=== PATIENT | female | born 1985 | race Caucasian/White ===

== ENCOUNTER 2017-09-15 18:30 | Emergency (ER) | payer MEDICAID, OTHER ==
[2017-09-15 20:51] LABS: BASO % 0.4 % (0.0-1.0); EOS # 0.1 10^3/uL (0.0-0.50); EOS % 0.9 % (0.0-3.0); HEMATOCRIT 42.8 % (36.0-47.0); IMMATURE GRANULOCYTE % 0.2 % (0-0); LYMPH # 3.7 10^3/uL (1.5-4.5); LYMPH % 37.7 % (24.0-44.0); MEAN CORPUSCULAR HEMOGLOBIN 28.8 pg (27.0-33.0); MEAN CORPUSCULAR HGB CONC 32.7 g/dl (32.0-36.5); MEAN CORPUSCULAR VOLUME 88.1 fl (80.0-96.0); MONO # 0.7 10^3/uL (0.0-0.8); MONO % 6.8 % (0.0-5.0); NEUTROPHILS # 5.3 10^3/uL (1.8-7.7); PLATELET COUNT, AUTOMATED 317 10^3/uL (150-450); RED BLOOD COUNT 4.86 10^6/uL (4.00-5.40); WHITE BLOOD COUNT 9.8 10^3/uL (4.0-10.0)
[2017-09-15 20:54] LABS: CONTROL LINE HCG INT CTR LINE PRESENT; HCG, SERUM QUALITATIVE NEGATIVE (NEGATIVE)
[2017-09-15 21:00] LABS: KETONE, URINE AUTO RFX TRACE mg/dL (NEGATIVE); LEUKOCYTE ESTERASE UR AUTO RFX NEGATIVE (NEGATIVE); MUCUS, URINE RFX SMALL (NEGATIVE); NITRITE, URINE AUTO RFX NEGATIVE (NEGATIVE); RBC, URINE AUTO RFX 4 /HPF (0-3); SPECIFIC GRAVITY UR AUTO RFX 1.026 (1.002-1.035); SQUAM EPITHELIAL CELL UR AURFX 4 /HPF (0-6); WBC, URINE AUTO RFX 2 /HPF (0-3)
[2017-09-15 21:02] LABS: ALBUMIN 4.4 GM/DL (3.2-5.2); ALBUMIN/GLOBULIN RATIO 1.38 (1.00-1.93); ALKALINE PHOSPHATASE 83 U/L (45-117); ALT/SGPT 17 U/L (12-78); ANION GAP 8 MEQ/L (8-16); AST/SGOT 17 U/L (7-37); BILIRUBIN,DIRECT 0.1 MG/DL (0.0-0.2); BILIRUBIN,TOTAL 0.4 MG/DL (0.2-1.0); BLOOD UREA NITROGEN 11 MG/DL (7-18); CALCIUM LEVEL 9.3 MG/DL (8.5-10.1); CARBON DIOXIDE LEVEL 30 MEQ/L (21-32); CHLORIDE LEVEL 105 MEQ/L (98-107); CREATININE FOR GFR 0.68 MG/DL (0.55-1.02); GLOMERULAR FILTRATION RATE > 60.0 (>60); GLUCOSE, FASTING 90 MG/DL (70-105); LIPASE 134 U/L (73-393); POTASSIUM SERUM 4.1 MEQ/L (3.5-5.1); SODIUM LEVEL 143 MEQ/L (136-145); TOTAL PROTEIN 7.6 GM/DL (6.4-8.2)
[2017-09-15] MEDS: KETOROLAC 30 MG/ML VIAL (J1885) IV ×2 (21:04)
[2017-09-15] MEDS: ONDANSETRON 4 MG ORAL DISINTEGRATING TAB (S0181) PO ×2 (21:05)
[2017-09-15] MEDS: NS 1,000 ML IV ×2 (21:05)
[2017-09-15] MEDS: MORPHINE 4 MG/ML 1ML SYRINGE IV ×2 (21:05)
[2017-09-15] MEDS: NORCO 5/325MG TABLET (BULK FOR ED) PO ×2 (23:18)
== END 2017-09-15 23:41 | disposition home or self-care (01) ==
LOC: M ED 18:30
DX: R10.9 Unspecified abdominal pain (principal); F17.200 Nicotine dependence, unspecified, uncomplicated
CPT/HCPCS: J1885

== ENCOUNTER 2017-09-22 19:09 | Emergency (ER) | payer MEDICAID | END 2017-09-22 20:05 | disposition left against medical advice (07) | LOC: M ED 19:09 | DX: Z53.21 Procedure and treatment not carried out due to patient leaving prior to being seen by health care provider (principal) | CPT/HCPCS: 99281 ==

== ENCOUNTER 2017-10-09 15:50 | Emergency (ER) | payer OTHER ==
[2017-10-09] MEDS: PERCOCET 5MG/325MG TAB PO (19:05)
[2017-10-09] MEDS: KETOROLAC 30 MG/ML VIAL (J1885) IV (19:11)
[2017-10-09] MEDS: ONDANSETRON 4MG/2ML VIAL (J2405) IV (19:11)
[2017-10-09 19:29] LABS: BASO % 0.3 % (0.0-1.0); EOS # 0.1 10^3/uL (0.0-0.50); EOS % 0.8 % (0.0-3.0); HEMATOCRIT 39.2 % (36.0-47.0); HEMOGLOBIN 12.7 g/dl (12.0-16.0); IMMATURE GRANULOCYTE # 0.1 10^3/uL (0-0); IMMATURE GRANULOCYTE % 0.5 % (0-0); LYMPH # 4.5 10^3/uL (1.5-4.5); LYMPH % 40.7 % (24.0-44.0); MEAN CORPUSCULAR HEMOGLOBIN 29.3 pg (27.0-33.0); MEAN CORPUSCULAR HGB CONC 32.4 g/dl (32.0-36.5); MEAN CORPUSCULAR VOLUME 90.3 fl (80.0-96.0); MONO # 0.6 10^3/uL (0.0-0.8); MONO % 5.5 % (0.0-5.0); NEUTROPHILS # 5.7 10^3/uL (1.8-7.7); NEUTROPHILS % 52.2 % (36.0-66.0); PLATELET COUNT, AUTOMATED 253 10^3/uL (150-450); RED BLOOD COUNT 4.34 10^6/uL (4.00-5.40); RED CELL DISTRIBUTION WIDTH 13.6 % (11.5-14.5)
[2017-10-09 19:46] LABS: APPEARANCE, URINE HAZY (CLEAR); BACTERIA, URINE AUTO 1+ (NEGATIVE); BILIRUBIN, URINE AUTO NEGATIVE (NEGATIVE); BLOOD, URINE BLOOD 3+ (NEGATIVE); COLOR, URINE YELLOW (YELLOW); GLUCOSE, URINE (UA) AUTO NEGATIVE (NEGATIVE); KETONE, URINE AUTO NEGATIVE (NEGATIVE); LEUKOCYTE ESTERASE, URINE AUTO NEGATIVE (NEGATIVE); MUCUS, URINE SMALL (NEGATIVE); NITRITE, URINE AUTO NEGATIVE (NEGATIVE); PROTEIN, URINE AUTO NEGATIVE (NEGATIVE); RBC, URINE AUTO TNTC /HPF (0-3); SQUAMOUS EPITHELIAL CELL UR AU 1 /HPF (0-6); UROBILINOGEN, URINE AUTO 0.2 mg/dL (0.0-2.0); WBC, URINE AUTO 3 /HPF (0-3)
[2017-10-09 20:02] LABS: ALBUMIN 3.8 GM/DL (3.2-5.2); ALBUMIN/GLOBULIN RATIO 1.12 (1.00-1.93); ALKALINE PHOSPHATASE 95 U/L (45-117); ALT/SGPT 93 U/L (12-78); ANION GAP 7 MEQ/L (8-16); AST/SGOT 43 U/L (7-37); BILIRUBIN,DIRECT < 0.1 MG/DL (0.0-0.2); BILIRUBIN,TOTAL 0.3 MG/DL (0.2-1.0); BLOOD UREA NITROGEN 13 MG/DL (7-18); CALCIUM LEVEL 9.1 MG/DL (8.5-10.1); CARBON DIOXIDE LEVEL 30 MEQ/L (21-32); CHLORIDE LEVEL 105 MEQ/L (98-107); GLOMERULAR FILTRATION RATE > 60.0 (>60); GLUCOSE, FASTING 101 MG/DL (70-100); POTASSIUM SERUM 4.8 MEQ/L (3.5-5.1); SODIUM LEVEL 142 MEQ/L (136-145); TOTAL PROTEIN 7.2 GM/DL (6.4-8.2)
[2017-10-09] MEDS: NORCO 5/325MG TABLET (BULK FOR ED) PO (21:28)
== END 2017-10-09 21:31 | disposition home or self-care (01) ==
LOC: M ED 15:50
DX: R10.9 Unspecified abdominal pain (principal); F17.210 Nicotine dependence, cigarettes, uncomplicated; Z88.0 Allergy status to penicillin; Z88.5 Allergy status to narcotic agent; Z88.8 Allergy status to other drugs, medicaments and biological substances; Z88.2 Allergy status to sulfonamides; Z87.448 Personal history of other diseases of urinary system; Z87.42 Personal history of other diseases of the female genital tract; Z98.890 Other specified postprocedural states
CPT/HCPCS: J2405

== ENCOUNTER 2018-01-19 22:41 | Emergency (ER) | payer MEDICAID, SELFPAY, OTHER ==
[2018-01-19 23:39] LABS: KETONE, URINE AUTO RFX NEGATIVE (NEGATIVE); NITRITE, URINE AUTO RFX NEGATIVE (NEGATIVE); RBC, URINE AUTO RFX TNTC /HPF (0-3); SPECIFIC GRAVITY UR AUTO RFX 1.014 (1.002-1.035); SQUAM EPITHELIAL CELL UR AURFX 3 /HPF (0-6); WBC, URINE AUTO RFX 2 /HPF (0-3)
[2018-01-19 23:40] LABS: LEUKOCYTE ESTERASE UR AUTO RFX TRACE (NEGATIVE)
[2018-01-20 00:16] LABS: BASO % 0.3 % (0.0-1.0); EOS # 0.2 10^3/uL (0.0-0.50); EOS % 1.6 % (0.0-3.0); HEMATOCRIT 42.8 % (36.0-47.0); HEMOGLOBIN 14.1 g/dl (12.0-15.5); IMMATURE GRANULOCYTE % 0.3 % (0-3.0); LYMPH # 3.4 10^3/uL (1.5-4.5); LYMPH % 31.1 % (24.0-44.0); MEAN CORPUSCULAR HEMOGLOBIN 29.5 pg (27.0-33.0); MEAN CORPUSCULAR HGB CONC 32.9 g/dl (32.0-36.5); MEAN CORPUSCULAR VOLUME 89.5 fl (80.0-96.0); MONO # 0.6 10^3/uL (0.0-0.8); MONO % 5.1 % (0.0-5.0); NEUTROPHILS # 6.8 10^3/uL (1.8-7.7); NEUTROPHILS % 61.6 % (36.0-66.0); PLATELET COUNT, AUTOMATED 279 10^3/uL (150-450); RED BLOOD COUNT 4.78 10^6/uL (4.00-5.40); RED CELL DISTRIBUTION WIDTH 12.5 % (11.5-14.5)
[2018-01-20] MEDS: MORPHINE 4 MG/ML 1ML VIAL/SYRINGE (J2270) IV ×4 (00:18→01:27)
[2018-01-20] MEDS: NS 1,000 ML IV ×2 (00:18)
[2018-01-20] MEDS: ONDANSETRON 4MG/2ML VIAL (J2405) IV ×2 (00:18)
[2018-01-20 00:59] LABS: ALBUMIN 4.3 GM/DL (3.2-5.2); ALBUMIN/GLOBULIN RATIO 1.08 (1.00-1.93); ALKALINE PHOSPHATASE 87 U/L (45-117); ALT/SGPT 23 U/L (12-78); ANION GAP 4 MEQ/L (8-16); AST/SGOT 20 U/L (7-37); BILIRUBIN,DIRECT < 0.1 MG/DL (0.0-0.2); BILIRUBIN,TOTAL 0.2 MG/DL (0.2-1.0); BLOOD UREA NITROGEN 6 MG/DL (7-18); CALCIUM LEVEL 9.2 MG/DL (8.5-10.1); CARBON DIOXIDE LEVEL 29 MEQ/L (21-32); CHLORIDE LEVEL 109 MEQ/L (98-107); CREATININE FOR GFR 0.72 MG/DL (0.55-1.30); GLOMERULAR FILTRATION RATE > 60.0 (>60); GLUCOSE, FASTING 87 MG/DL (70-100); LIPASE 112 U/L (73-393); POTASSIUM SERUM 4.1 MEQ/L (3.5-5.1); SODIUM LEVEL 142 MEQ/L (136-145); TOTAL PROTEIN 8.3 GM/DL (6.4-8.2)
[2018-01-20] MEDS: NORCO 5/325MG TABLET (BULK FOR ED) PO ×2 (02:42)
== END 2018-01-20 02:46 | disposition home or self-care (01) ==
LOC: M ED 01-20 02:46
DX: R10.9 Unspecified abdominal pain (principal); N20.0 Calculus of kidney; F17.210 Nicotine dependence, cigarettes, uncomplicated; Z79.2 Long term (current) use of antibiotics; Z87.442 Personal history of urinary calculi; Z88.0 Allergy status to penicillin; Z88.5 Allergy status to narcotic agent; Z88.8 Allergy status to other drugs, medicaments and biological substances; Z88.2 Allergy status to sulfonamides
CPT/HCPCS: J2270

== ENCOUNTER 2021-12-29 23:53 | Inpatient (IN) | payer MEDICAID, OTHER ==
[~2021-12-29] VITALS: Ht 162.6 cm; Wt 81.3 kg
[~2021-12-29 23:53] MED LIST: ACET-683 PO; HYDR-3715 PO; KETO10TAB PO; ZOFR4TAB14 PO
[2021-12-30] MEDS ORDERED: RALTEGRAVIR 400 MG TAB (ISENTRESS) PO SCH
[2021-12-30] MEDS ORDERED: HYDR50TA70 PO (00:18)
[2021-12-30] MEDS ORDERED: TRAZ-189 PO (00:18)
[2021-12-30] MEDS ORDERED: LAMO25TA4 PO (00:18)
[2021-12-30] MEDS ORDERED: GABA-1171 PO (00:18)
[2021-12-30] MEDS ORDERED: ARIP10TA32 PO (00:18)
[2021-12-30] MEDS ORDERED: ALPR0.25 PO (00:18)
[2021-12-30] MEDS ORDERED: CHOL25TA8 PO (00:18)
[2021-12-30] MEDS ORDERED: NS 1,000 ML IV ONE (00:30)
[2021-12-30] MEDS ORDERED: ONDANSETRON 4MG/2ML VIAL IV ONE (00:30)
[2021-12-30 02:24] LABS: BASO % 0.4 % (0.0-1.0); EOS % 0.4 % (0.0-3.0); HEMATOCRIT 47.5 % (36.0-47.0); HEMOGLOBIN 15.3 g/dl (12.0-15.5); MEAN CORPUSCULAR HEMOGLOBIN 29.5 pg (27.0-33.0); MEAN CORPUSCULAR HGB CONC 32.2 g/dl (32.0-36.5); MEAN CORPUSCULAR VOLUME 91.7 fl (80.0-96.0); MONO # 0.6 10^3/uL (0.0-0.8); MONO % 5.9 % (2.0-8.0); NEUTROPHILS # 5.5 10^3/uL (1.5-8.5); NEUTROPHILS % 53.7 % (36.0-66.0); PLATELET COUNT, AUTOMATED 326 10^3/uL (150-450); RED BLOOD COUNT 5.18 10^6/uL (4.00-5.40); WHITE BLOOD COUNT 10.3 10^3/uL (4.0-10.0)
[2021-12-30 03:45] LABS: ACETAMINOPHEN LEVEL < 2.0 UG/ML (10.0-30.0); ALBUMIN 3.9 GM/DL (3.2-5.2); ALT/SGPT 136 U/L (12-78); BILIRUBIN,DIRECT < 0.1 MG/DL (0.0-0.2); BILIRUBIN,TOTAL 0.2 MG/DL (0.2-1.0); BLOOD UREA NITROGEN 7 MG/DL (7-18); CALCIUM LEVEL 8.9 MG/DL (8.5-10.1); CARBON DIOXIDE LEVEL 23 MEQ/L (21-32); CHLORIDE LEVEL 113 MEQ/L (98-107); CREATININE FOR GFR 0.45 MG/DL (0.55-1.30); ETHYL ALCOHOL (ETHANOL) 0.174 % (0.000-0.010); GLOMERULAR FILTRATION RATE > 60.0 (>60); GLUCOSE, FASTING 91 MG/DL (70-100); LIPASE 317 U/L (73-393); POTASSIUM SERUM 3.8 MEQ/L (3.5-5.1); SALICYLATE LEVEL 1.9 MG/DL (5.0-30.0); SODIUM LEVEL 145 MEQ/L (136-145); TOTAL PROTEIN 7.5 GM/DL (6.4-8.2)
[2021-12-30 04:56] LABS: RSV AMPLIFICATION NEGATIVE (NEGATIVE)
[2021-12-30 05:38] LABS: HCG, SERUM QUALITATIVE NEGATIVE (NEGATIVE)
[2021-12-30] MEDS ORDERED: RALT40TA PO (08:02)
[2021-12-30] MEDS ORDERED: DOXY-342 PO (08:02)
[2021-12-30] MEDS ORDERED: EMTR1TAB16 PO (08:02)
[2021-12-30] MEDS ORDERED: EXPOSURE KIT-ADULT 7 DAY SUPPLY PO ONE (08:15)
[2021-12-30] MEDS ORDERED: HEPATITIS B IMMUNE GLOBULIN 5ML INJ IM ONE (08:15)
[2021-12-30] MEDS ORDERED: GENTAMICIN 240 MG in D5W 50 ML IM ONE (08:15)
[2021-12-30] MEDS ORDERED: HEPATITIS B VACCINE 10 MCG/0.5 ML SYRINGE (FOR ALL OTHER PTS) IM ONE (08:15)
[2021-12-30] MEDS ORDERED: BOOSTRIX/ADACEL VACCINE (DIPHTH/PERTUSS/ACELL/TETANUS) 0.5ML SYR IM ONE (08:15)
[2021-12-30] MEDS ORDERED: ULIPRISTAL ACETATE 30 MG TAB (ELLA) PO ONE (08:15)
[2021-12-30] MEDS ORDERED: metroNIDAZOLE (FLAGYL) 500MG TABLET PO ONE (08:15)
[2021-12-30] MEDS ORDERED: DOXYCYCLINE HYCLATE 100MG TABLET PO ONE (08:15)
[2021-12-30] MEDS ORDERED: AZITHROMYCIN 250MG TABLET PO ONE (08:15)
[2021-12-30] MEDS ORDERED: GENTAMICIN SULF 80MG/2ML VIAL IM ONE (08:35)
[2021-12-30] MEDS ORDERED: TRUVADA 200MG/300MG TABLET PO ONE (08:40)
[2021-12-30] MEDS ORDERED: RALTEGRAVIR 400 MG TAB (ISENTRESS) PO ONE (08:40)
[2021-12-30] MEDS ORDERED: HEPATITIS B VACCINE 20MCG/ML 1ML SYRINGE (ADULT DOSE) IM ONE (09:55)
[2021-12-30 11:42] LABS: GLUCOSE, URINE (UA) MANUAL NEGATIVE (NEGATIVE)
[2021-12-30 11:43] LABS: BILIRUBIN, URINE MANUAL NEGATIVE (NEGATIVE); KETONE, URINE MANUAL 1+ mg/dL (NEGATIVE); UROBILINOGEN, URINE MANUAL NORMAL (NORMAL)
[2021-12-30 11:54] LABS: BACTERIA, URINE SMALL AMOUNT; HYALINE CAST, URINE NONE SEEN /lpf (0-1); RBC, URINE 0-1 /hpf (0-3); SQUAMOUS EPITHELIAL CELL URINE SMALL AMOUNT /hpf (SMALL AMT)
[2021-12-30 11:55] LABS: OTHER CRYSTALS, URINE AMM BIURATE /hpf
[2021-12-30 11:56] LABS: AMORPHOUS SEDIMENT, URINE MOD AMOUNT (NEGATIVE)
[2021-12-30 14:01] LABS: AMPHETAMINES LEVEL URINE NEGATIVE (NEGATIVE); BARBITURATES URINE NEGATIVE (NEGATIVE); BENZODIAZEPINES URINE NEGATIVE (NEGATIVE); CANNABINOIDS URINE POSITIVE (NEGATIVE); COCAINE METABOLITE URINE NEGATIVE (NEGATIVE); METHADONE URINE NEGATIVE (NEGATIVE); OPIATES URINE NEGATIVE (NEGATIVE); PHENCYCLIDINE URINE NEGATIVE (NEGATIVE)
[2021-12-30 14:45] LABS: GC DNA AMPLIFICATION NEGATIVE (NEGATIVE)
[2021-12-30] MEDS ORDERED: lamoTRIgine 25MG TAB PO SCH (15:55)
[2021-12-30] MEDS ORDERED: ARIPiprazole 10 MG TAB PO SCH (15:55)
[2021-12-30] MEDS: GABAPENTIN 100 MG CAP PO SCH ×3 (16:00→21:10)
[2021-12-30] MEDS ORDERED: NICO-265 PO (17:38)
[2021-12-30] MEDS ORDERED: HOME MED LIST COMPLETE! XX SCH (18:05)
[2021-12-30] MEDS ORDERED: traZODone 100 MG TAB PO ONE (21:30)
[2021-12-31 08:06] LABS: HEPATITIS B SURFACE ANTIBODY POSITIVE (POSITIVE)
[2021-12-31 08:17] LABS: HEPATITIS B SURFACE ANTIGEN NEGATIVE (NEGATIVE)
[2021-12-31] MEDS: GABAPENTIN 100 MG CAP PO SCH ×3 (08:19→20:14)
[2021-12-31 08:45] LABS: HIV 1&2 SCREEN CENTAUR NEGATIVE (NEGATIVE)
[2021-12-31 08:49] LABS: HEPATITIS C VIRUS ABY INDEX > 11.0 INDEX (<0.8)
[2021-12-31] MEDS: MULTIVITAMINS/MINERALS THERAP 1 TAB PO SCH (09:00)
[2021-12-31] MEDS: THIAMINE 100 MG TAB PO SCH ×2 (09:00→20:15)
[2021-12-31] MEDS: FOLIC ACID 1 MG TAB PO SCH (09:00)
[2021-12-31] MEDS ORDERED: TRUVADA 200MG/300MG TABLET PO SCH ×2 (09:00)
[2021-12-31] MEDS ORDERED: RALTEGRAVIR 400 MG TAB (ISENTRESS) PO SCH (09:00)
[2021-12-31] MEDS: VITAMIN D 1,000 INTERNATIONAL UNITS TABLET PO SCH (09:00)
[2021-12-31] MEDS: NICOTINE 21MG/24HR 1 EA TRANSDERMAL TD SCH (09:00)
[2021-12-31] MEDS ORDERED: traZODone 50 MG TAB PO PRN (12:25)
[2021-12-31] MEDS ORDERED: LORazepam 2 MG TAB PO PRN (12:25)
[2021-12-31] MEDS ORDERED: MAALOX 30 ML SUSP *UDC PO PRN (12:25)
[2021-12-31] MEDS ORDERED: OLANZapine 5 MG TAB PO PRN (12:25)
[2021-12-31] MEDS ORDERED: MOM 30ML SUSPENSION UDC PO PRN (12:25)
[2021-12-31 16:30] VITALS: BP 117/59
[2021-12-31] MEDS: IBUPROFEN 400MG TAB PO PRN (17:04)
[2021-12-31 17:47] VITALS: BP 114/79
[2021-12-31] MEDS: traZODone 100 MG TAB PO SCH (20:14)
[2021-12-31] MEDS: ARIPiprazole 10 MG TAB PO SCH (20:14)
[2021-12-31] MEDS: RALTEGRAVIR 400 MG TAB (ISENTRESS) PO SCH (20:15)
[2021-12-31] MEDS: lamoTRIgine 25MG TAB PO SCH (20:15)
[2021-12-31] MEDS: DOXYCYCLINE HYCLATE 100MG TABLET PO SCH (20:15)
[2021-12-31 20:32] VITALS: BP 123/66
[2021-12-31] MEDS: hydrOXYzine 50 MG TAB PO PRN (20:47)
[2021-12-31] MEDS: diphenhydrAMINE 25MG CAP PO PRN (20:47)
[2021-12-31] MEDS ORDERED: ARIPiprazole 10 MG TAB PO SCH (21:00)
[2021-12-31] MEDS ORDERED: lamoTRIgine 25MG TAB PO SCH (21:00)
[2021-12-31] MEDS ORDERED: EXPOSURE KIT-ADULT 7 DAY SUPPLY PO SCH ×2 (21:00)
[2021-12-31] MEDS ORDERED: DOXYCYCLINE HYCLATE 100MG TABLET PO SCH (21:00)
[2022-01-01 06:42] VITALS: BP 102/60
[2022-01-01 06:57] VITALS: BP 102/60
[2022-01-01] MEDS: FOLIC ACID 1 MG TAB PO SCH (08:38)
[2022-01-01] MEDS: GABAPENTIN 100 MG CAP PO SCH ×3 (08:38→20:24)
[2022-01-01] MEDS: NICOTINE 21MG/24HR 1 EA TRANSDERMAL TD SCH (08:38)
[2022-01-01] MEDS: TRUVADA 200MG/300MG TABLET PO SCH (08:38)
[2022-01-01] MEDS: VITAMIN D 1,000 INTERNATIONAL UNITS TABLET PO SCH (08:38)
[2022-01-01] MEDS: RALTEGRAVIR 400 MG TAB (ISENTRESS) PO SCH ×2 (08:38→20:24)
[2022-01-01] MEDS: DOXYCYCLINE HYCLATE 100MG TABLET PO SCH ×2 (08:38→20:25)
[2022-01-01] MEDS: THIAMINE 100 MG TAB PO SCH ×2 (08:38→20:24)
[2022-01-01] MEDS: MULTIVITAMINS/MINERALS THERAP 1 TAB PO SCH (08:38)
[2022-01-01] MEDS ORDERED: INFLUENZA QUADRIVALENT PF VACCINE 0.5ML SYRINGE IM ONE (09:00)
[2022-01-01] MEDS: hydrOXYzine 50 MG TAB PO PRN ×2 (09:09→20:23)
[2022-01-01] MEDS: IBUPROFEN 400MG TAB PO PRN (12:04)
[2022-01-01] MEDS: OXAZEPAM 15MG CAP PO SCH ×2 (14:27→22:06)
[2022-01-01 15:41] VITALS: BP 96/53
[2022-01-01 15:44] VITALS: BP 96/53
[2022-01-01] MEDS: diphenhydrAMINE 25MG CAP PO PRN (18:08)
[2022-01-01] MEDS: ARIPiprazole 10 MG TAB PO SCH (20:24)
[2022-01-01] MEDS: traZODone 100 MG TAB PO SCH (20:24)
[2022-01-01] MEDS: lamoTRIgine 25MG TAB PO SCH (20:25)
[2022-01-01 21:59] VITALS: BP 108/70
[2022-01-02] MEDS: OXAZEPAM 15MG CAP PO SCH ×3 (05:36→21:18)
[2022-01-02 06:50] VITALS: BP 99/70
[2022-01-02] MEDS: DOXYCYCLINE HYCLATE 100MG TABLET PO SCH (08:39)
[2022-01-02] MEDS: RALTEGRAVIR 400 MG TAB (ISENTRESS) PO SCH ×2 (08:39→19:59)
[2022-01-02] MEDS: FOLIC ACID 1 MG TAB PO SCH (08:39)
[2022-01-02] MEDS: TRUVADA 200MG/300MG TABLET PO SCH (08:39)
[2022-01-02] MEDS: GABAPENTIN 100 MG CAP PO SCH ×3 (08:39→20:00)
[2022-01-02] MEDS: VITAMIN D 1,000 INTERNATIONAL UNITS TABLET PO SCH (08:39)
[2022-01-02] MEDS: NICOTINE 21MG/24HR 1 EA TRANSDERMAL TD SCH (08:39)
[2022-01-02] MEDS ORDERED: diphenhydrAMINE 50MG CAP PO STA (10:02)
[2022-01-02] MEDS: hydrOXYzine 50 MG TAB PO PRN ×2 (13:19→20:01)
[2022-01-02] MEDS: IBUPROFEN 400MG TAB PO PRN (18:53)
[2022-01-02] MEDS: lamoTRIgine 25MG TAB PO SCH (19:59)
[2022-01-02] MEDS: traZODone 100 MG TAB PO SCH (20:00)
[2022-01-02] MEDS: QUEtiapine FUMARATE 50MG TAB PO SCH (20:00)
[2022-01-02] MEDS: ARIPiprazole 10 MG TAB PO SCH (20:01)
[2022-01-03] MEDS: OXAZEPAM 15MG CAP PO SCH ×3 (05:56→21:12)
[2022-01-03 06:28] VITALS: BP 124/70
[2022-01-03] MEDS: RALTEGRAVIR 400 MG TAB (ISENTRESS) PO SCH ×2 (08:20→20:27)
[2022-01-03] MEDS: TRUVADA 200MG/300MG TABLET PO SCH (08:20)
[2022-01-03] MEDS: GABAPENTIN 100 MG CAP PO SCH (08:22)
[2022-01-03] MEDS: FOLIC ACID 1 MG TAB PO SCH (08:22)
[2022-01-03] MEDS: VITAMIN D 1,000 INTERNATIONAL UNITS TABLET PO SCH (08:22)
[2022-01-03] MEDS: NICOTINE 21MG/24HR 1 EA TRANSDERMAL TD SCH (08:23)
[2022-01-03] MEDS: diphenhydrAMINE 25MG CAP PO PRN ×2 (11:07→20:26)
[2022-01-03] MEDS: hydrOXYzine 50 MG TAB PO PRN ×2 (11:07→20:26)
[2022-01-03] MEDS ORDERED: QUEtiapine FUMARATE 50MG TAB PO ONE (12:00)
[2022-01-03] MEDS: CEPACOL LOZENGE PO PRN ×2 (12:42→20:26)
[2022-01-03 15:04] VITALS: BP 107/58
[2022-01-03] MEDS: GABAPENTIN 300 MG CAP PO SCH ×2 (16:18→20:27)
[2022-01-03] MEDS: ARIPiprazole 10 MG TAB PO SCH (20:27)
[2022-01-03] MEDS: QUEtiapine FUMARATE 50MG TAB PO SCH (20:27)
[2022-01-03] MEDS: lamoTRIgine 25MG TAB PO SCH (20:27)
[2022-01-04] MEDS: OXAZEPAM 10MG CAP PO SCH ×3 (00:06→20:03)
[2022-01-04 06:03] VITALS: BP 113/81
[2022-01-04] MEDS: NICOTINE 21MG/24HR 1 EA TRANSDERMAL TD SCH (08:08)
[2022-01-04] MEDS: RALTEGRAVIR 400 MG TAB (ISENTRESS) PO SCH ×2 (08:08→20:02)
[2022-01-04] MEDS: VITAMIN D 1,000 INTERNATIONAL UNITS TABLET PO SCH (08:08)
[2022-01-04] MEDS: TRUVADA 200MG/300MG TABLET PO SCH (08:08)
[2022-01-04] MEDS: GABAPENTIN 300 MG CAP PO SCH ×3 (08:08→20:04)
[2022-01-04] MEDS: hydrOXYzine 50 MG TAB PO PRN ×2 (08:08→17:56)
[2022-01-04] MEDS: FOLIC ACID 1 MG TAB PO SCH (08:08)
[2022-01-04] MEDS ORDERED: BACITRACIN OINTMENT 30GM TUBE TOP PRN (10:05)
[2022-01-04] MEDS ORDERED: IBUPROFEN 800 MG TAB PO ONE (10:10)
[2022-01-04] MEDS: CEPACOL LOZENGE PO PRN ×2 (11:22→22:10)
[2022-01-04] MEDS: diphenhydrAMINE 25MG CAP PO PRN (12:15)
[2022-01-04 18:53] VITALS: BP 120/73
[2022-01-04] MEDS: lamoTRIgine 25MG TAB PO SCH (20:04)
[2022-01-04] MEDS: ARIPiprazole 10 MG TAB PO SCH (20:04)
[2022-01-04] MEDS: QUEtiapine FUMARATE 50MG TAB PO SCH (20:04)
[2022-01-05 06:27] VITALS: BP 90/51
[2022-01-05] MEDS: RALTEGRAVIR 400 MG TAB (ISENTRESS) PO SCH ×2 (08:27→20:05)
[2022-01-05] MEDS: NICOTINE 21MG/24HR 1 EA TRANSDERMAL TD SCH (08:27)
[2022-01-05] MEDS: GABAPENTIN 300 MG CAP PO SCH ×3 (08:27→20:09)
[2022-01-05] MEDS: FOLIC ACID 1 MG TAB PO SCH (08:27)
[2022-01-05] MEDS: OXAZEPAM 10MG CAP PO SCH ×2 (08:27→20:08)
[2022-01-05] MEDS: VITAMIN D 1,000 INTERNATIONAL UNITS TABLET PO SCH (08:27)
[2022-01-05] MEDS: TRUVADA 200MG/300MG TABLET PO SCH (08:27)
[2022-01-05] MEDS: diphenhydrAMINE 25MG CAP PO PRN (12:00)
[2022-01-05] MEDS: CEPACOL LOZENGE PO PRN (15:23)
[2022-01-05 18:38] VITALS: BP 125/72
[2022-01-05] MEDS: hydrOXYzine 50 MG TAB PO PRN (20:07)
[2022-01-05] MEDS: QUEtiapine FUMARATE 50MG TAB PO SCH (20:08)
[2022-01-05] MEDS: lamoTRIgine 25MG TAB PO SCH (20:09)
[2022-01-05] MEDS: ARIPiprazole 10 MG TAB PO SCH (20:09)
[2022-01-06 06:00] VITALS: BP 90/54
[2022-01-06 07:36] LABS: BASO # 0.1 10^3/uL (0.0-0.2); BASO % 0.5 % (0.0-1.0); EOS # 0.3 10^3/uL (0.0-0.5); EOS % 2.8 % (0.0-3.0); HEMATOCRIT 41.2 % (36.0-47.0); LYMPH # 5.3 10^3/uL (1.5-5.0); LYMPH % 53.9 % (24.0-44.0); MEAN CORPUSCULAR HEMOGLOBIN 29.1 pg (27.0-33.0); MEAN CORPUSCULAR HGB CONC 31.6 g/dl (32.0-36.5); MEAN CORPUSCULAR VOLUME 92.4 fl (80.0-96.0); MONO # 0.7 10^3/uL (0.0-0.8); MONO % 7.2 % (2.0-8.0); NEUTROPHILS # 3.4 10^3/uL (1.5-8.5); NEUTROPHILS % 35.3 % (36.0-66.0); PLATELET COUNT, AUTOMATED 339 10^3/uL (150-450); RED BLOOD COUNT 4.46 10^6/uL (4.00-5.40); WHITE BLOOD COUNT 9.7 10^3/uL (4.0-10.0)
[2022-01-06 07:54] LABS: ALBUMIN 3.5 GM/DL (3.2-5.2); ALT/SGPT 92 U/L (12-78); BILIRUBIN,TOTAL 0.2 MG/DL (0.2-1.0); BLOOD UREA NITROGEN 11 MG/DL (7-18); CALCIUM LEVEL 9.5 MG/DL (8.5-10.1); CARBON DIOXIDE LEVEL 27 MEQ/L (21-32); CHLORIDE LEVEL 109 MEQ/L (98-107); GLOMERULAR FILTRATION RATE > 60.0 (>60); GLUCOSE, FASTING 93 MG/DL (70-100); MAGNESIUM LEVEL 2.3 MG/DL (1.8-2.4); POTASSIUM SERUM 4.7 MEQ/L (3.5-5.1); SODIUM LEVEL 141 MEQ/L (136-145); TOTAL PROTEIN 6.9 GM/DL (6.4-8.2)
[2022-01-06 09:06] VITALS: BP 117/63
[2022-01-06] MEDS: GABAPENTIN 300 MG CAP PO SCH ×3 (09:09→20:20)
[2022-01-06] MEDS: TRUVADA 200MG/300MG TABLET PO SCH (09:09)
[2022-01-06] MEDS: VITAMIN D 1,000 INTERNATIONAL UNITS TABLET PO SCH (09:09)
[2022-01-06] MEDS: NICOTINE 21MG/24HR 1 EA TRANSDERMAL TD SCH (09:09)
[2022-01-06] MEDS: FOLIC ACID 1 MG TAB PO SCH (09:09)
[2022-01-06] MEDS: RALTEGRAVIR 400 MG TAB (ISENTRESS) PO SCH ×2 (09:09→20:20)
[2022-01-06] MEDS: OXAZEPAM 10MG CAP PO SCH (12:34)
[2022-01-06 18:31] VITALS: BP 132/70
[2022-01-06] MEDS: ARIPiprazole 10 MG TAB PO SCH (20:20)
[2022-01-06] MEDS: lamoTRIgine 25MG TAB PO SCH (20:20)
[2022-01-06] MEDS: QUEtiapine FUMARATE 50MG TAB PO SCH (20:20)
[2022-01-06] MEDS: diphenhydrAMINE 25MG CAP PO PRN (20:20)
[2022-01-07 06:34] VITALS: BP 137/70
[2022-01-07] MEDS: GABAPENTIN 300 MG CAP PO SCH ×3 (09:00→20:04)
[2022-01-07] MEDS: NICOTINE 21MG/24HR 1 EA TRANSDERMAL TD SCH (09:00)
[2022-01-07] MEDS: VITAMIN D 1,000 INTERNATIONAL UNITS TABLET PO SCH (09:00)
[2022-01-07] MEDS: FOLIC ACID 1 MG TAB PO SCH (09:00)
[2022-01-07] MEDS: TRUVADA 200MG/300MG TABLET PO SCH (09:00)
[2022-01-07] MEDS: RALTEGRAVIR 400 MG TAB (ISENTRESS) PO SCH ×2 (09:00→20:03)
[2022-01-07] MEDS: hydrOXYzine 50 MG TAB PO PRN (11:25)
[2022-01-07] MEDS: OXAZEPAM 10MG CAP PO SCH (12:54)
[2022-01-07 16:44] VITALS: BP 110/65
[2022-01-07] MEDS: IBUPROFEN 400MG TAB PO PRN (17:04)
[2022-01-07] MEDS: ARIPiprazole 10 MG TAB PO SCH (20:04)
[2022-01-07] MEDS: lamoTRIgine 25MG TAB PO SCH (20:04)
[2022-01-07] MEDS: QUEtiapine FUMARATE 50MG TAB PO SCH (20:04)
[2022-01-08 06:30] VITALS: BP 97/59
[2022-01-08] MEDS: RALTEGRAVIR 400 MG TAB (ISENTRESS) PO SCH ×2 (08:34→20:11)
[2022-01-08] MEDS: FOLIC ACID 1 MG TAB PO SCH (08:34)
[2022-01-08] MEDS: VITAMIN D 1,000 INTERNATIONAL UNITS TABLET PO SCH (08:34)
[2022-01-08] MEDS: GABAPENTIN 300 MG CAP PO SCH ×3 (08:34→20:11)
[2022-01-08] MEDS: NICOTINE 21MG/24HR 1 EA TRANSDERMAL TD SCH (08:35)
[2022-01-08] MEDS: TRUVADA 200MG/300MG TABLET PO SCH (08:35)
[2022-01-08] MEDS: hydrOXYzine 50 MG TAB PO PRN (11:28)
[2022-01-08] MEDS: OXAZEPAM 10MG CAP PO SCH (12:47)
[2022-01-08 18:00] VITALS: BP 101/57
[2022-01-08] MEDS: lamoTRIgine 25MG TAB PO SCH (20:11)
[2022-01-08] MEDS: ARIPiprazole 10 MG TAB PO SCH (20:11)
[2022-01-08] MEDS: diphenhydrAMINE 25MG CAP PO PRN (20:11)
[2022-01-08] MEDS: QUEtiapine FUMARATE 50MG TAB PO SCH (20:11)
[2022-01-09 07:14] VITALS: BP 103/55
[2022-01-09] MEDS: NICOTINE 21MG/24HR 1 EA TRANSDERMAL TD SCH (08:23)
[2022-01-09] MEDS: TRUVADA 200MG/300MG TABLET PO SCH (08:24)
[2022-01-09] MEDS: VITAMIN D 1,000 INTERNATIONAL UNITS TABLET PO SCH (08:24)
[2022-01-09] MEDS: FOLIC ACID 1 MG TAB PO SCH (08:24)
[2022-01-09] MEDS: GABAPENTIN 300 MG CAP PO SCH ×3 (08:24→19:54)
[2022-01-09] MEDS: RALTEGRAVIR 400 MG TAB (ISENTRESS) PO SCH ×2 (08:24→19:55)
[2022-01-09] MEDS: OXAZEPAM 10MG CAP PO SCH (12:52)
[2022-01-09] MEDS: IBUPROFEN 400MG TAB PO PRN (15:04)
[2022-01-09 16:21] VITALS: BP 119/77
[2022-01-09] MEDS ORDERED: traMADol 50 MG TAB PO ONE (19:25)
[2022-01-09] MEDS ORDERED: ACETAMINOPHEN 500 MG TAB PO ONE (19:25)
[2022-01-09] MEDS: lamoTRIgine 25MG TAB PO SCH (19:54)
[2022-01-09] MEDS: ARIPiprazole 10 MG TAB PO SCH (19:54)
[2022-01-09] MEDS: QUEtiapine FUMARATE 50MG TAB PO SCH (19:54)
[2022-01-09] MEDS: DOXYCYCLINE HYCLATE 100MG TABLET PO SCH (19:54)
[2022-01-10 07:10] VITALS: BP 98/55
[2022-01-10] MEDS ORDERED: QUET50TA4 PO ×2 (08:17→09:10)
[2022-01-10] MEDS ORDERED: ABIL10TA9 PO ×2 (08:17→09:10)
[2022-01-10] MEDS ORDERED: EMTR1TAB16 PO (08:17)
[2022-01-10] MEDS ORDERED: GABA-282 PO ×2 (08:17→09:10)
[2022-01-10] MEDS ORDERED: HYDR50TA70 PO (08:17)
[2022-01-10] MEDS ORDERED: LAMI25TA PO ×2 (08:17→09:10)
[2022-01-10] MEDS ORDERED: RALT40TA PO ×2 (08:17→09:10)
[2022-01-10] MEDS ORDERED: NICO21PAT TD ×2 (08:17→09:10)
[2022-01-10] MEDS: DOXYCYCLINE HYCLATE 100MG TABLET PO SCH (09:00)
[2022-01-10] MEDS: TRUVADA 200MG/300MG TABLET PO SCH (09:00)
[2022-01-10] MEDS: VITAMIN D 1,000 INTERNATIONAL UNITS TABLET PO SCH (09:00)
[2022-01-10] MEDS: NICOTINE 21MG/24HR 1 EA TRANSDERMAL TD SCH (09:00)
[2022-01-10] MEDS: GABAPENTIN 300 MG CAP PO SCH (09:00)
[2022-01-10] MEDS: RALTEGRAVIR 400 MG TAB (ISENTRESS) PO SCH (09:00)
[2022-01-10] MEDS: FOLIC ACID 1 MG TAB PO SCH (09:00)
[2022-01-10] MEDS ORDERED: DOXY100T PO (09:10)
[2022-01-10] MEDS ORDERED: EMTR1TAB3 PO (09:10)
[2022-01-10] MEDS ORDERED: NALT50TA4 PO (09:12)
== END 2022-01-10 12:45 | disposition home or self-care (01) | DRG 753 ==
LOC: M ED 23:53 → M ED INP 12-31 12:26 → M PSY 12-31 16:29
PROVIDERS: ADMIT Student in an Organized Health Care Education/Training Program; ATTEND Psychiatry & Neurology Psychiatry
DX: F31.9 Bipolar disorder, unspecified (principal); R45.851 Suicidal ideations; F17.200 Nicotine dependence, unspecified, uncomplicated; F10.220 Alcohol dependence with intoxication, uncomplicated; F41.9 Anxiety disorder, unspecified; Z91.52 Personal history of nonsuicidal self-harm; Z91.410 Personal history of adult physical and sexual abuse; R74.01 Elevation of levels of liver transaminase levels; R10.32 Left lower quadrant pain; R42 Dizziness and giddiness; H66.92 Otitis media, unspecified, left ear; F43.0 Acute stress reaction; Z87.442 Personal history of urinary calculi; Z79.899 Other long term (current) drug therapy; Z88.0 Allergy status to penicillin; Z88.5 Allergy status to narcotic agent; Z88.2 Allergy status to sulfonamides; Z88.8 Allergy status to other drugs, medicaments and biological substances; Z65.3 Problems related to other legal circumstances